=== PATIENT | male | born 1985 | race Caucasian/White ===

== ENCOUNTER 2018-06-22 07:17 | Emergency (ER) | payer SELFPAY ==
[2018-06-22 07:27] VITALS: RESP 18
--- NOTE | 2018-06-22 08:40 | C.PDOC ---
History Of Present Illness 32 years old male presents to ED for complaints of right sided neck pain that began yesterday and worsened today morning. Patient describes pain worsens with movement. Denies trauma, injury, numbness, tingling, back pain, or any other complaints. Time Seen by Provider: 06/22/18 07:55 Chief Complaint (Nursing): Back Pain History Per: Patient History/Exam Limitations: no limitations Onset/Duration Of Symptoms: Hrs, Sudden Onset Current Symptoms Are (Timing): Still Present Quality Of Discomfort: "Pain" Previous Symptoms: Neck Pain Associated Symptoms: None Exacerbating Factor(s): Movement Recent travel outside of the [place]: No Past Medical History Reviewed: Historical Data, Nursing Documentation, Vital Signs Vital Signs: Last Vital Signs Temp 98.4 F 06/22/18 07:24 Pulse 65 06/22/18 07:24 Resp 18 06/22/18 07:24 BP 145/76 06/22/18 07:24 Pulse Ox 100 06/22/18 07:24 - Medical History PMH: No Chronic Diseases Surgical History: No Surg Hx Family History: States: No Known Family Hx - Social History Hx Alcohol Use: No Hx Substance Use: No - Immunization History Hx Tetanus Toxoid Vaccination: No Hx Influenza Vaccination: No Hx Pneumococcal Vaccination: No Review Of Systems Constitutional: Negative for: Fever, Chills Gastrointestinal: Negative for: Nausea, Vomiting Musculoskeletal: Positive for: Neck Pain Skin: Negative for: Rash Neurological: Negative for: Weakness, Numbness Physical Exam - Physical Exam Appears: Non-toxic, No Acute Distress Skin: Normal Color, Warm, Dry, No Rash Head: Atraumatic, Normacephalic Eye(s): bilateral: Normal Inspection, PERRL, EOMI Oral Mucosa: Moist Neck: Normal ROM, No Midline Cervical Tenderness, Paracervical Tenderness (right sided), No Step Off Deformity, Supple, Other (pain with movement to the ipsila teral side of pain) Chest: Symmetrical Cardiovascular: Rhythm Regular Respiratory: Normal Breath Sounds, No Rales, No Rhonchi, No Wheezing Extremity: Normal ROM Extremity: Bilateral: Atraumatic, Normal Color And Temperature, Normal ROM Pulses: Left Radial: Normal, Right Radial: Normal Neurological/Psych: Oriented x3, Normal Speech Gait: Steady ED Course And Treatment O2 Sat by Pulse Oximetry: 100 (RA) Pulse Ox Interpretation: Normal Medical Decision Making Medical Decision Making: Plan: * Flexeril * Anaprox Disposition - Disposition Referrals: [facility] [Outside] Disposition: HOME/ ROUTINE Disposition Time: 09:00 Condition: STABLE Additional Instructions: Follow up with the medical doctor/clinic within 1-2 days. Return if worsened. 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 - Scribe Statement The provider has reviewed the documentation as recorded by the Davonibandrew Riley All medical record entries made by the Valdemar were at my direction and personally dictated by me. I have reviewed the chart and agree that the record accurately reflects my personal performance of the history, physical exam, medical decision making, and the department course for this patient. I have also personally directed, reviewed, and agree with the discharge instructions and disposition.
[2018-06-22] MEDS ORDERED: Naproxen 550 mg Tab PO STA (08:42)
[2018-06-22] MEDS ORDERED: Naproxen 550 mg Tab PO ONE (08:47)
[2018-06-22 09:27] VITALS: BP 106/65; PULSE 66; TEMP 98.8
[2018-06-23 04:00] VITALS: O2SAT 100
== END 2018-06-22 09:27 | disposition home or self-care (01) ==
LOC: C.ER 07:17
DX: M43.6 Torticollis (principal)

== ENCOUNTER 2018-06-27 11:41 | Emergency (ER) | payer SELFPAY ==
[2018-06-27 11:46] VITALS: BMI 22.4
[2018-06-27 12:00] VITALS: BP 117/69; PULSE 93; RESP 20; TEMP 97.6; O2SAT 99
--- NOTE | 2018-06-27 13:59 | C.PDOC ---
History Of Present Illness 32 y/o male presents to the ED complaining of sharp, left-sided rib pain for the last 3 days. Denies recent trauma. Pain worsens with movement of the right arm or rotation of his body. He denies any SOB, palpitations, dizziness, fever, chills, cough, or recent travel. Denies any known PMHx. Denies family history of sudden cardiac at a young age. Time Seen by Provider: 06/27/18 12:13 Chief Complaint (Nursing): Chest Pain History Per: Patient History/Exam Limitations: no limitations Onset/Duration Of Symptoms: Days (x3) Current Symptoms Are (Timing): Still Present Past Medical History Reviewed: Historical Data, Nursing Documentation, Vital Signs Vital Signs: Last Vital Signs Temp 97.6 F 06/27/18 11:49 Pulse 93 H 06/27/18 11:49 Resp 20 06/27/18 11:49 BP 117/69 06/27/18 11:49 Pulse Ox 99 06/27/18 11:49 - Medical History PMH: No Chronic Diseases Surgical History: No Surg Hx Family History: States: No Known Family Hx - Social History Hx Tobacco Use: No Hx Alcohol Use: No Hx Substance Use: No - Immunization History Hx Tetanus Toxoid Vaccination: No Hx Influenza Vaccination: No Hx Pneumococcal Vaccination: No Review Of Systems Except As Marked, All Systems Reviewed And Found Negative. Constitutional: Negative for: Fever, Chills Cardiovascular: Positive for: Chest Pain (right rib pain). Negative for: Palpitations, Light Headedness Respiratory: Negative for: Cough, Shortness of Breath Gastrointestinal: Negative for: Nausea, Vomiting Neurological: Negative for: Weakness, Numbness, Dizziness Physical Exam - Physical Exam Appears: Well, Non-toxic, No Acute Distress Skin: Warm, Dry, No Diaphoretic Head: Atraumatic, Normacephalic Eye(s): bilateral: Normal Inspection, PERRL, EOMI Neck: Normal ROM Chest: Tenderness (Point tenderness to left anterior rib cage, over ribs 5-7) Cardiovascular: Rhythm Regular, No Murmur Respiratory: Normal Breath Sounds, No Rales, No Rhonchi, No Wheezing Gastrointestinal/Abdominal: Soft, No Tenderness, No Distention Extremity: Bilateral: Normal Color And Temperature, Normal ROM Pulses: Left Dorsalis Pedis: Normal, Right Dorsalis Pedis: Normal Neurological/Psych: Oriented x3, Normal Speech Gait: Steady ED Course And Treatment ECG: Interpreted By Me, Viewed By Me ECG Rhythm: Sinus Rhythm Interpretation Of ECG: normal axis, normal intervals Rate From EC (bpm) O2 Sat by Pulse Oximetry: 99 (RA) Pulse Ox Interpretation: Normal Medical Decision Making Medical Decision Making: Impression: Right-sided rib pain Initial Plan: --Chest x-ray --EKG --Motrin 600 mg PO CXR shows no acute disease. Patient remains AAOx3, afebrile, and is resting comfortably on reevaluation. Plan is to discharge home with muscle relaxant and ibuprofen. Counseled patient regarding diagnosis and follow-up instructions. Disposition Counseled Patient/Family Regarding: Studies Performed, Diagnosis, Need For Followup, Rx Given - Disposition Referrals: [facility] Nguyễn, [Non-Staff] - Disposition: HOME/ ROUTINE Disposition Time: 13:10 Condition: GOOD Additional Instructions: CEDRIC HOYT, thank you for letting us take care of you today. The emergency medical care you received today was directed at your acute symptoms. If you were prescribed any medication, please fill it and take as directed. It may take several days for your symptoms to resolve. Return to the Emergency Department if your symptoms worsen, do not improve, or if you have any other problems. Please contact your doctor or call one of the physicians/clinics you have been referred to that are listed on the Patient Visit Information form that is included in your discharge packet. Bring any paperwork you were given at discharge with you along with any medications you are taking to your follow up visit. Our treatment cannot replace ongoing medical care by a primary care provider outside of the emergency department. Thank you for allowing the [facility] team to be part of your care today. Follow up with your primary care doctor in 2-3 days for re-evaluation and further management. Prescriptions: Cyclobenzaprine [Cyclobenzaprine HCl] 10 mg PO Q8 PRN #20 tab PRN Reason: Muscle Spasm Ibuprofen [Motrin] 600 mg PO Q6 PRN #20 tab PRN Reason: Pain, Moderate (4-7) Instructions: Muscle and Bone Pain (DC) Forms: QUIQ (Azeri) - POA Present On Arrival: None - Clinical Impression Clinical Impression: Musculoskeletal pain - Scribe Statement The provider has reviewed the documentation as recorded by the Valdemar Mcknight Provider Attestation: All medical record entries made by the Valdemar were at my direction and personally dictated by me. I have reviewed the chart and agree that the record accurately reflects my personal performance of the history, physical exam, medical decision making, and the department course for this patient. I have also personally directed, reviewed, and agree with the discharge instructions and disposition.
--- NOTE | 2018-06-27 15:51 | RAD ---
Chest x-ray two views HISTORY: Infiltrate. Comparison: None available. Findings: Mild venous congestion. Heart size within normal limits. Impression: Mild venous congestion.
--- NOTE | 2018-06-30 19:26 | CARD ---
APPROVED REPORT Date of service: 06/27/2018 EKG Measurement Heart [id number] <Conclusion> Normal sinus rhythm Normal ECG
== END 2018-06-27 13:48 | disposition home or self-care (01) ==
LOC: C.ER 11:41
DX: M79.18 Myalgia, other site (principal)